=== PATIENT | male | born 1960 | race Caucasian/White ===

== ENCOUNTER 2019-01-13 17:22 | Emergency (ER) | payer OTHER ==
[2019-01-13 17:39] VITALS: TEMP 98.1; BMI 27.7
--- NOTE | 2019-01-13 17:54 | PDOC ---
History of Present Illness - General Chief Complaint: Nausea/Vomiting Stated Complaint: VOMITING Time Seen by Provider: 01/13/19 17:52 - History of Present Illness Initial Comments: 58yo M with PMH of HTN and pre-diabetes presenting with nausea, vomiting, and dizziness. Patient states he had three or four episodes of nonbloody nonbilious vomiting yesterday. Denies eating anything unusual. He endorses continued nausea today as well as lessened po intake because he is afraid to worsen his nausea. Denies abdominal pain. Endorses chest pain which he attributes to vomiting. Patient woke up this morning with room-spinning dizziness and weakness. Also endorsing blurry vision and unsteadiness when he was walking earlier. His dizziness has improved over the course of the day, but he still feels it somewhat. No urinary symptoms. Denies fevers, chills, or shortness of breath. Past History - Past Medical History Allergies/Adverse Reactions: Allergies Allergy/AdvReac Type Severity Reaction Status Date / Time No Known Allergies Allergy Verified 01/13/19 17:27 Home Medications: Ambulatory Orders Aspirin [ASA -] 81 mg PO DAILY 01/13/19 Lisinopril 10 mg PO BID 01/13/19 Ondansetron [Zofran Odt -] 4 mg SL TID PRN #10 od.tablet 01/13/19 COPD: No HTN: Yes - Suicide/Smoking/Psychosocial Hx Smoking History: Current some day smoker Information on smoking cessation initiated: No Hx Alcohol Use: Yes Review of Systems - Review of Systems Comments:: Constitutional: no fever, no chills HEENT: no throat pain, no dysphagia Cardiovascular: + chest pain, no palpitations Respiratory: no cough, no shortness of breath Gastrointestinal: no abdominal pain, +nausea Genitourinary: no dysuria, no frequency Musculoskeletal: no myalgia, no arthralgia Skin: no rash, no itching Neurologic: no headache, +dizziness *Physical Exam - Vital Signs Last Vital Signs Temp Pulse Resp BP Pulse Ox 98.1 F 86 18 164/100 99 01/13/19 17:25 01/13/19 17:25 01/13/19 17:25 01/13/19 17:25 01/13/19 17:25 - Physical Exam Comments: General: Awake, alert, and fully oriented, in no acute distress Head: No signs of trauma Eyes: EOMI, sclera anicteric ENT: Moist mucus membranes Neck: Normal ROM, supple Lungs: Lungs clear, Normal breath sounds Cardio: Regular rhythm, S1 and S2 present Abdomen: Soft, nontender. No guarding, no rebound, no masses Extremities: Normal range of motion, Distal pulses present SKIN: Warm, Dry, normal turgor Neurologic: Cranial nerves II through XII intact. Normal speech, sensation, strength, coordination, and gait. ED Treatment Course - LABORATORY CBC & Chemistry Diagram: 01/13/19 18:30 01/13/19 18:30 Medical Decision Making - Medical Decision Making 58yo M with PMH of HTN and pre-diabetes presenting with nausea, vomiting, and dizziness. DDX including but not limited to viral syndrome, gastroenteritis, ACS, pancreatitis, hyperglycemia, DKA, HHS CBC, CMP, Lipase, UA, UCx EKG, CXR 1L NS 01/13/19 18:17 EKG: rate 81, QTc 422, NSR 4mg zofran, pepcid, maalox 01/13/19 18:50 CXR "Findings: Single AP radiograph of the thorax was provided. The pulmonary parenchyma and pleural surfaces are unremarkable. The visualized cardiomediastinal silhouette and visualized bony structures are unremarkable. Impression: Negative chest x-ray." 01/13/19 19:02 Patient reports he is feeling better CBC WBC 11.1 K/mm3 (4.0-10.0) H 01/13/19 18:30 RBC 4.50 M/mm3 (4.00-5.60) 01/13/19 18:30 Hgb 14.9 GM/dL (11.7-16.9) 01/13/19 18:30 Hct 43.6 % (35.4-49) 01/13/19 18:30 MCV 96.8 fl (80-96) H 01/13/19 18:30 MCH 33.1 pg (25.7-33.7) 01/13/19 18:30 MCHC 34.2 g/dl (32.0-35.9) 01/13/19 18:30 RDW 13.9 % (11.9-15.9) 01/13/19 18:30 Plt Count 209 K/MM3 (134-434) 01/13/19 18:30 MPV 9.4 fl (7.5-11.1) 01/13/19 18:30 Absolute Neuts (auto) 7.8 K/mm3 (1.5-8.0) 01/13/19 18:30 Neutrophils % 69.9 % (42.8-82.8) 01/13/19 18:30 Lymphocytes % 23.1 % (8-40) 01/13/19 18:30 Monocytes % 6.0 % (3.8-10.2) 01/13/19 18:30 Eosinophils % 0.5 % (0-4.5) 01/13/19 18:30 Basophils % 0.5 % (0-2.0) 01/13/19 18:30 Nucleated RBC % 0 % (0-0) 01/13/19 18:30 No anemia Slight leukocytosis, WBC 11.1 CMP Sodium 138 mmol/L (136-145) 01/13/19 18:30 Potassium 3.9 mmol/L (3.5-5.1) 01/13/19 18:30 Chloride 104 mmol/L (98-107) 01/13/19 18:30 Carbon Dioxide 29 mmol/L (21-32) 01/13/19 18:30 Anion Gap 5 MMOL/L (8-16) L 01/13/19 18:30 BUN 18 mg/dL (7-18) 01/13/19 18:30 Creatinine 0.7 mg/dL (0.55-1.3) 01/13/19 18:30 Creat Clearance w eGFR 116.24 (>60) 01/13/19 18:30 Random Glucose 144 mg/dL (74-106) H 01/13/19 18:30 Calcium 9.2 mg/dL (8.5-10.1) 01/13/19 18:30 Total Bilirubin 0.6 mg/dL (0.2-1) 01/13/19 18:30 AST 38 U/L (15-37) H 01/13/19 18:30 ALT 55 U/L (13-61) 01/13/19 18:30 Alkaline Phosphatase 86 U/L (45-117) 01/13/19 18:30 Troponin I < 0.02 ng/ml (0.00-0.05) 01/13/19 18:30 Total Protein 7.8 g/dl (6.4-8.2) 01/13/19 18:30 Albumin 3.9 g/dl (3.4-5.0) 01/13/19 18:30 Lipase 131 U/L (73-393) 01/13/19 18:30 Electrolytes unremarkable Tpn undetectable Lipase WNL Low suspicion for acute cardiac or abdominal pathology. Patient likely suffering from virus presenting as nausea/vomiting, which exacerbated dehydration, causing him to feel dizzy and weak. Patient reports feeling better. PO challenge with water and crackers Pending UA 01/13/19 19:55 UA negative for infection Patient passed po challenge Discharged 01/13/19 20:19 *DC/Admit/Observation/Transfer Diagnosis at time of Disposition: Vomiting Qualifiers: Vomiting type: unspecified Vomiting Intractability: non-intractable Nausea presence: with nausea Qualified Code(s): R11.2 - Nausea with vomiting, unspecified - Discharge Dispostion Disposition: HOME Condition at time of disposition: Stable - Prescriptions Prescriptions: Ondansetron [Zofran Odt -] 4 mg SL TID PRN #10 od.tablet PRN Reason: Nausea And/Or Vomiting - Referrals Referrals: Brittany Edwards [Primary Care Provider] - - Patient Instructions Printed Discharge Instructions: DI for Vomiting -- Adult Additional Instructions: You came into the ED for vomiting. Labs were within normal limits. Xray did not show acute pathology. Antinausea prescription sent to your pharmacy. Follow-up with your primary care doctor this week to discuss this ED visit and to further evaluate your symptoms. Your blood pressure today was 164/100. Your doctor may want to make adjustments to your blood pressure medication. A copy of your labs have been given to you to show your doctor. Immediate medical attention is required if you have: you develop worsening pain , high fevers, persistent nausea, vomiting, or any new or concerning symptoms. If you think you are having an emergency, call for emergency medical services or present to the emergency department right away. - Post Discharge Activity Forms/Work/School Notes: Back to Work
[2019-01-13] MEDS ORDERED: SODIUM CHLORIDE 1,000 ML IV STA (18:15)
--- NOTE | 2019-01-13 18:33 | PDOC ---
Attending Attestation - Resident Resident Name: Pauly Murray - ED Attending Attestation I have performed the following: I have examined & evaluated the patient, The case was reviewed & discussed with the resident, I agree w/resident's findings & plan, Exceptions are as noted - HPI HPI: 58 yo M history prediabetes presents with weakness. S/p 3-4 episodes of NBNB vomiting yesterday, poor appetite today. States he was afraid to eat because of the vomiting yesterday and did not feel hungry. Denies abd pain, diarrhea, f/c. No vomiting today, but did feel weak and dizzy. - Physicial Exam PE: GENERAL: Awake, alert, and fully oriented, in no acute distress HEAD: No signs of trauma EYES: PERRLA, EOMI, sclera anicteric, conjunctiva clear ENT: Auricles normal inspection, hearing grossly normal, nares patent, oropharynx clear without exudates. Dry mucosa NECK: Normal ROM, supple, no lymphadenopathy, JVD, or masses LUNGS: Breath sounds equal, clear to auscultation bilaterally. No wheezes, and no crackles HEART: Regular rate and rhythm, normal S1 and S2, no murmurs, rubs or gallops ABDOMEN: Soft, nontender, slightly increased bowel sounds. No guarding, no rebound. No masses EXTREMITIES: Normal range of motion, no edema. No clubbing or cyanosis. No cords, erythema, or tenderness NEUROLOGICAL: Cranial nerves II through XII grossly intact. Normal speech, normal gait. Motor and sensation intact SKIN: Warm, Dry, normal turgor, no rashes or lesions noted. - Medical Decision Making Pt with weakness after multiple episodes of vomiting yesterday. No signs of acute abdomen on exam at present. Will give GI cocktail, IV fluids, and check labs. If wnl and patient improves, will DC home.
[2019-01-13 18:38] LABS: BASO % 0.5 % (0-2.0); EOS % 0.5 % (0-4.5); HEMATOCRIT 43.6 % (35.4-49); HEMOGLOBIN 14.9 GM/dL (11.7-16.9); LYMPH % 23.1 % (8-40); MCH 33.1 pg (25.7-33.7); MCHC 34.2 g/dl (32.0-35.9); MEAN CELL VOLUME 96.8 fl (80-96); MEAN PLT VOLUME 9.4 fl (7.5-11.1); NEUT % 69.9 % (42.8-82.8); PLATELET COUNT 209 K/MM3 (134-434); RDW 13.9 % (11.9-15.9); WHITE BLOOD COUNT 11.1 K/mm3 (4.0-10.0)
[2019-01-13] MEDS ORDERED: FAMOTIDINE 20 MG/50 ML IVPB 20 MG/50 ML MG IVPB ONE ×2 (18:53→18:58)
[2019-01-13] MEDS ORDERED: ONDANSETRON 4 MG/2 ML VIAL IVPUSH ONE (18:53)
[2019-01-13] MEDS ORDERED: MAG HYDROX/AL HYDROX/SIMETH -MYLANTA- ORAL SUSPENSION PO ONE (18:53)
[2019-01-13] MEDS ORDERED: MAG HYDROX/AL HYDROX/SIMETH 30 ML UNIT-DOSE CUP ONE (18:58)
[2019-01-13] MEDS ORDERED: ONDANSETRON 4 MG/2 ML VIAL ONE (18:58)
[2019-01-13 19:03] LABS: ALBUMIN 3.9 g/dl (3.4-5.0); ALK PHOS 86 U/L (45-117); ANION GAP 5 MMOL/L (8-16); BILIRUBIN,TOTAL 0.6 mg/dL (0.2-1); BLOOD UREA NITROGEN 18 mg/dL (7-18); CALCIUM 9.2 mg/dL (8.5-10.1); CHLORIDE 104 mmol/L (98-107); CO2 29 mmol/L (21-32); CREATININE 0.7 mg/dL (0.55-1.3); GLUCOSE,RANDOM 144 mg/dL (74-106); POTASSIUM 3.9 mmol/L (3.5-5.1); SGOT/AST 38 U/L (15-37); SGPT/ALT 55 U/L (13-61); SODIUM 138 mmol/L (136-145); TOT PROT 7.8 g/dl (6.4-8.2)
[2019-01-13 19:51] LABS: PH,URINE 7.5 (5.0-8.0); URINE APPEARANCE CLEAR; URINE BILIRUBIN NEGATIVE (NEGATIVE); URINE COLOR YELLOW; URINE GLUCOSE (UA) NEGATIVE (NEGATIVE); URINE KETONE NEGATIVE (NEGATIVE); URINE LEUK ESTERASE NEGATIVE (NEGATIVE); URINE NITRITE NEGATIVE (NEGATIVE); URINE PROTEIN NEGATIVE (NEGATIVE)
[2019-01-13 20:20] VITALS: BP 153/85; PULSE 71
--- NOTE | 2019-01-14 12:57 | EKG ---
Test Reason : Blood Pressure : / mmHG Vent. Rate : 081 BPM Atrial Rate : 081 BPM P-R Int : 168 ms QRS Dur : 090 ms QT Int : 364 ms P-R-T Axes : 047 -04 014 degrees QTc Int : 422 ms NORMAL SINUS RHYTHM MINIMAL VOLTAGE CRITERIA FOR LVH, MAY BE NORMAL VARIANT BORDERLINE ECG Confirmed by MD ALEJANDRO, TOMAS ([id number]) on 01/14/2019 12:57:33 PM Referred By: Confirmed By:TOMAS ALLEN MD
== END 2019-01-13 20:20 | disposition home or self-care (01) ==
LOC: JER 17:22
PROC: 3E0337Z Introduction of Electrolytic and Water Balance Substance into Peripheral Vein, Percutaneous Approach (ICD-10-PCS; principal; 2019-01-13)
PROC: 3E033GC Introduction of Other Therapeutic Substance into Peripheral Vein, Percutaneous Approach (ICD-10-PCS; 2019-01-13)
PROC: 3E033GC Introduction of Other Therapeutic Substance into Peripheral Vein, Percutaneous Approach (ICD-10-PCS; 2019-01-13)
DX: R11.2 Nausea with vomiting, unspecified (principal); I10 Essential (primary) hypertension; R73.03 Prediabetes
CPT/HCPCS: 36415; 71045-TC-FY; 80053; 81003; 83690; 84484; 85025; 87086; 93005; 93010; 96361; 96365; 96375; 99284-25; J7030